=== PATIENT | female | born 1990 | race American Indian/Alaskan Native ===

== ENCOUNTER 2016-12-10 09:14 | Emergency (ER) | payer MEDICAID, OTHER ==
[2016-12-10 10:37] LABS: RBC URINE 1 /hpf (0-3); URINE BILIRUBIN NEGATIVE (NEGATIVE); URINE BLOOD NEGATIVE (NEGATIVE); URINE COLOR Yellow (YELLOW); URINE GLUCOSE (UA) NORMAL (Normal); URINE KETONE NEGATIVE (NEGATIVE); URINE LEUKOCYTE ESTERASE TRACE Leu/uL (Negative); URINE PROTEIN 1+ mg/dL (NEGATIVE); WBC URINE 2 /hpf (0-5)
[2016-12-10 10:42] LABS: URINE BACTERIA OCC (<OCC)
[2016-12-10] MEDS ORDERED: Sodium Chloride 0.9% 1,000 ML IV ONE (10:49)
[2016-12-10] MEDS ORDERED: Apap-Butalbital-Caffeine 325-50-40mg Tab PO STA (11:25)
[2016-12-10 11:32] LABS: BASO % 0.5 % (0.0-2.0); EOS % 0.4 % (0.0-4.0); HEMATOCRIT 29.1 % (34.0-47.0); LYMPH # 1.4 K/uL (1.0-4.3); MEAN CELL VOLUME 86.7 fL (81.0-99.0); MEAN CORPUSCULAR HEMOGLOBIN 29.3 pg (27.0-31.0); MEAN CORPUSCULAR HGB CONC 33.8 g/dL (33.0-37.0); MEAN PLATELET VOLUME 7.3 fL (7.2-11.7); MONO # 0.6 K/uL (0.0-0.8); MONO % 6.2 % (0.0-10.0); RED CELL DISTRIBUTION WIDTH 13.6 % (11.5-14.5); WHITE BLOOD COUNT 9.6 K/uL (4.8-10.8)
[2016-12-10] MEDS ORDERED: Lactated Ringer's 1,000 ML IV ONE (11:33)
[2016-12-10 11:39] LABS: CHLORIDE 100 mmol/L (98-107); POTASSIUM 3.3 mmol/L (3.6-5.2); SODIUM 133 mmol/L (132-148)
[2016-12-10 11:41] LABS: AST/SGOT 16 U/L (14-36); BILIRUBIN,TOTAL 1.2 mg/dL (0.2-1.3); CARBON DIOXIDE 25 mmol/L (22-30); GFR AFRICAN-AMERICAN > 60; TOTAL PROTEIN 6.5 g/dL (6.3-8.3)
[2016-12-10 11:42] LABS: ALKALINE PHOSPHATASE 42 U/L (38-126); ALT/SGPT 14 U/L (9-52); BLOOD UREA NITROGEN 5 mg/dL (7-17); CALCIUM 8.1 mg/dl (8.6-10.4); GLUCOSE,RANDOM 74 mg/dL (65-105); MAGNESIUM 1.7 mg/dL (1.6-2.3); PHOSPHOROUS 3.5 mg/dL (2.5-4.5); URIC ACID 3.1 mg/dL (2.2-7.5)
--- NOTE | 2016-12-10 14:20 | OBHP ---
Datetime: 12/10/2016 11:02 IP Adm Impression: , intrauterine IP Chief Complaint Other: headache Admit Comment, IP Provider: chief complaint-headache HPI 25 y/o at 22 wga withc /o headache-right sided for 2 days.She reports having 2 episdoes o f vomiting as well.Reports that light and sound make the headache worse.2 episodes of nausea and vomi ting as well.reports active movement.denies vaginal bleeding or loss of fluid course uncomplicated PMH migraines; ?hx of seizures as a child PSH denies OBGYN HX ; [id number] Social hx denies tobacco,alcohol or illicit drug use Exam see exam section A/P 25 y/o at 22 wga with right sided headache -migraine headache -check albs -iv fluids -pih labs -monitor closely 2.15 pm patient s/p iv fluids, tylenol and reglan.state sthat headache si resolved with tylenol.nausea imp roved with reglan.she is tolerating crackers and [place] UA with 1 +protein bacteria, epithelial cells H.H 9.8/29.1 A/P migarien headache, uti, anemia -patient discharged home -clinically improved -script for macrobid and jamey given -follow up with obgyn in 1 week Pelvic Type - PN: Adequate Extremities - PN: Normal Abdomen - PN: Normal Back - PN: Normal Lungs - PN: Normal Heart - PN: Normal Neurologic - PN: Normal General - PN: Normal FHR - Baseline A Provider: 140 Contraction Comments Provider: none Gestation - Est Wks by US: 22.0 IP Hx Assessment: The History has been Reviewed and is Current EGA AdmitDate IP: 22.0 Vital Signs Provider: Reviewed; Within Normal Limits IP Chief Complaint: Other NICHD Variability Prov Fetus A: Moderate 6-25bpm Genitourinary Exam: Normal DTRs - PN: Normal
== END 2016-12-10 14:10 | disposition home or self-care (01) ==
LOC: C.EROB 09:14
DX: O26.892 Other specified pregnancy related conditions, second trimester (principal); G43.909 Migraine, unspecified, not intractable, without status migrainosus; O23.42 Unspecified infection of urinary tract in pregnancy, second trimester; O99.012 Anemia complicating pregnancy, second trimester; Z3A.22 22 weeks gestation of pregnancy
CPT/HCPCS: 80053; 81001; 83615; 83735; 84100; 84550; 85025; 96374; 99283; J2765; J7120

== ENCOUNTER 2016-12-31 17:06 | Emergency (ER) | payer OTHER | END 2016-12-31 17:43 | disposition home or self-care (01) | LOC: C.EROB 17:06 | DX: O26.892 Other specified pregnancy related conditions, second trimester (principal); Z3A.25 25 weeks gestation of pregnancy ==